=== PATIENT | male | born 1985 | race Caucasian/White ===

== ENCOUNTER 2019-02-06 19:26 | Emergency (ER) | payer BC, MEDICAID ==
[2019-02-06 19:51] LABS: ABS Basophils 0.1 10^3/ul (0-0.2); ABS Lymphocytes 1.5 10^3/ul (1.0-4.8); ABS Monocytes 0.3 10^3/ul (0-0.8); ABS Neutrophils 7.5 10^3/ul (1.5-7.7); Eosinophil % 0.3 %; Hematocrit 46 % (42-52); Lymphocyte % 15.8 %; Mean Corpuscular HGB Conc 35 g/dL (31-36); Mean Corpuscular Hemoglobin 32 pg (27-31); Mean Corpuscular Volume 90 fL (80-94); Mean Platelet Volume 6.6 fL (7.4-10.4); Platelet Count 373 10^3/uL (150-450); Red Blood Count 5.08 10^6 /uL (4.18-5.48); Red Cell Distribution Width 13 % (10-15); White Blood Count 9.3 10^3/uL (3.5-10.8)
[2019-02-06 20:07] LABS: ALT 22 U/L (7-52); AST 26 U/L (13-39); Albumin 4.6 g/dL (3.2-5.2); Albumin/Globulin Ratio 1.8 (1-3); Alkaline Phosphatase 55 U/L (34-104); Anion Gap 13 mmol/L (2-11); Blood Urea Nitrogen 16 mg/dL (6-24); CO2 Carbon Dioxide 27 mmol/L (22-32); Calcium 9.9 mg/dL (8.6-10.3); Chloride 100 mmol/L (101-111); EGFR African American 119.1 (>60); EGFR Non-African American 98.4 (>60); Globulin 2.6 g/dL (2-4); Glucose 102 mg/dL (70-100); Sodium 140 mmol/L (135-145); Total Protein 7.2 g/dL (6.4-8.9)
--- NOTE | 2019-02-06 20:10 | ED ---
Psychiatric Complaint - HPI Summary HPI Summary: The pt is a 33 yr old male presenting to [facility] c/o EtOH abuse and fearfulness beginning 1899 this date. History is primarily from mother initially who accompanied pt to the ED and pt could only state, "I'm so afraid" initially. He was living in [place] with his and has an extensive history of EtOH abuse. He has been to EtOH rehab twice and after the second time he began drinking immediately which was a few weeks ago, which made his ask him to move out and seek help with his parents. He now lives with his parents in [place] and is attending Alcoholics Anonymous daily but still continues to drink. He has been seen in the past for psychiatric reasons but does not know the diagnoses he received. Per the mother, the pt was losing it and unable to read earlier today and could not remember performing simple actions like opening the deck door. He repeatedly states that he is freaking out and so scared and mentions that he drank an unspecified amount of alcohol earlier today. Pt came to the ED today because he felt he could get some help, and to try to stop drinking alcohol. He notes that he hears voices that tell him to drink but denies any SI or HI and denies that the voices are commanding him to hurt himself or someone else. Pt denies any visual hallucinations. He is feeling much worse than he was at the AA meeting this afternoon. He mostly drinks bourbon and notes that he has considered his father an alcoholic since he was a child. The pt sometimes has DTs and withdrawal symptoms after EtOH abuse. He takes trazadone and an unspecified SSRI at home. He denies any medical history, allergies, or surgical history. He denies any pain in triage but reports head and abd pain in the room. Pt denies overdose or any use of substances other than alcohol. He denies prior hx of suicide gesture. No aggravating or alleviating factors noted. FHx of alcoholism. Vital signs while in room: HR 91, BP 128/90, and O2 sat 96%. Pt placed on constant observation. - History Of Current Complaint Chief Complaint: EDMentalHealth Time Seen by Provider: 02/06/19 19:37 Hx Obtained From: Patient, Family/Comic Artist - mother Onset/Duration: Gradual Onset, Still Present Timing: Constant Severity Initially: Moderate Severity Currently: Moderate Character: Fearful, Anxious Aggravating Factor(s): Nothing Alleviating Factor(s): Nothing Associated Signs And Symptoms: Positive: Hallucinating - auditory, but not command hallucinations. No auditory hallucinations Related History: Positive For: Prior Psychiatric Issues, Admissions Related To Substance Abuse Has Suicidal: Denies: Thoughts, Demonstrates Gesture, Has Prior Attempt(s) Has Homicidal: Denies: Thoughts, Demonstrates Gesture, Has Prior Attempt(s) Ingestion History: Type/Name Of Drug - alcohol, Amount Ingested - unknown - Allergies/Home Medications Allergies/Adverse Reactions: Allergies Allergy/AdvReac Type Severity Reaction Status Date / Time No Known Allergies Allergy Verified 02/06/19 19:30 PMH/Surg Hx/FS Hx/Imm Hx Previously Healthy: No - hx EtOH abuse and failed rehab several times Sensory History: Denies: Hx Cataracts EENT History: Denies: Hx Deafness - Surgical History Surgical History: None Infectious Disease History: No Infectious Disease History: Denies: Traveled Outside the [place] in Last 30 Days - Family History Known Family History: Positive: Other - alcoholism, father - Social History Lives: With Family - mother and father now, was living with in [place] until failed alcohol rehab. No children. Alcohol Use: Daily - large amounts Hx Substance Use: No - denies Smoking Status (MU): Never Smoked Tobacco Review of Systems Constitutional: Negative Eyes: Negative ENT: Negative Cardiovascular: Negative Respiratory: Negative Positive: Abdominal Pain. Negative: Vomiting, Diarrhea, Nausea Positive: no symptoms reported Musculoskeletal: Negative Skin: Negative Positive: Headache. Negative: Syncope, Slurred Speech Positive: Anxious, Other - fearful All Other Systems Reviewed And Are Negative: Yes Physical Exam - Summary Physical Exam Summary: Appearance: agitated-appearing, no pain distress noted, thin, pt pacing in room , pt shaking his legs Skin: Warm, color reflects adequate perfusion, dry Head: Normal Head/Face inspection, atraumatic Eyes: Conjunctiva clear, pupils midpoint ENT: Normal inspection Neck: Supple, no nodes, no JVD Respiratory: Lungs clear, normal breath sounds, no respiratory distress Cardio: RRR, No murmur, pulses normal, brisk capillary refill Abdomen: Soft, nontender Bowel sounds: Present Musculoskeletal: Strength Intact/ROM intact, no calf tenderness, no edema. Psychological: Anxious, fearful, reaches out for mother to comfort him Neuro: Alert, muscle tone normal, no focal deficit, not tremulous, not hallucinating per pt Triage Information Reviewed: Yes Vital Signs On Initial Exam: Initial Vitals Temp Pulse Resp BP Pulse Ox 99 F 91 15 128/90 96 02/06/19 19:28 02/06/19 19:28 02/06/19 19:28 02/06/19 19:28 02/06/19 19:28 Vital Signs Reviewed: Yes Diagnostics - Vital Signs Vital Signs Temp Pulse Resp BP Pulse Ox 02/06/19 19:28 99 F 91 15 128/90 96 - Laboratory Lab Results: Lab Results 02/06/19 Range/Units 19:45 WBC 9.3 (3.5-10.8) 10^3/uL RBC 5.08 (4.18-5.48) 10^6 /uL Hgb 16.0 (14.0-18.0) g/dL Hct 46 (42-52) % MCV 90 (80-94) fL MCH 32 H (27-31) pg MCHC 35 (31-36) g/dL RDW 13 (10-15) % Plt Count 373 (150-450) 10^3/uL MPV 6.6 L (7.4-10.4) fL Neut % (Auto) 80.6 % Lymph % (Auto) 15.8 % [place] % (Auto) 2.7 % Eos % (Auto) 0.3 % Baso % (Auto) 0.6 % Absolute Neuts (auto) 7.5 (1.5-7.7) 10^3/ul Absolute Lymphs (auto) 1.5 (1.0-4.8) 10^3/ul Absolute Monos (auto) 0.3 (0-0.8) 10^3/ul Absolute Eos (auto) 0.0 (0-0.6) 10^3/ul Absolute Basos (auto) 0.1 (0-0.2) 10^3/ul Absolute Nucleated RBC 0.0 10^3/ul Nucleated RBC % 0.0 Result Diagrams: 02/06/19 19:45 02/06/19 19:45 Lab Statement: Any lab studies that have been ordered have been reviewed, and results considered in the medical decision making process. Re-Evaluation - Re-Evaluation First Eval Re-Evaluation Time: 20:47 Change: Unchanged Comment: Pt history was further discussed with pt and mother. Second Eval Re-Evaluation Time: 20:50 Change: Unchanged Comment: Ari from [facility] and I go into the room together. Mother advised of E eval process. Pt gives permission for mother to know his lab results. Pt and mother advised of EtOH level of 327. Advised the pt to sleep. Pt wants meds for calm to sleep. Will give Ativan 2 mg PO. Third Eval Re-Evaluation Time: 21:00 Change: Worse Comment: Pt is dry heaving, will give Zofran. Fourth Eval Re-Evaluation Time: 22:00 Change: Improved Comment: Pt appears to be sleeping. Calm on stretcher. Will change observation to q 15 minutes. Mother has gone home. Course/Dx - Course Course Of Treatment: The pt is a 33 yr old male presenting to [facility] c/o acute EtOH abuse (s/p failed rehab several times, hx DT's and alcohol withdrawal, but no hx seizures), and also fearfulness beginning 1899 this date. He also reports head pain, abd pain, fearfulness, and anxiety. He denies wishing any medication for head pain or abdominal pain. Pt came to the ED today with his mother to try to get help with stopping drinking alcohol, and because he is "freaking out". Pt denies SI/HI. On exam pt is alert, pacing in the room, cooperative, clings to mother, has no VS indicating DT's or withdrawal, and no tremor and denies hallucinations. Speech is clear and coherent. Test results without significant abnormality except serum alcohol 327. In the ED course pt was given 2 mg Ativan PO and 8 mg Zofran ODT PO. Final Dxs are alcohol intoxication, chronic alcohol abuse, and mental health problem. The pt will be a sign out to Dr. Grover at the 219902/06/2019 shift change pending alcohol metabolism and clinical sobriety , and observation for medical complications of alcoholism, mental health evaluation and disposition. - Differential Dx/Clinical Impression Provider Diagnosis: Mental health problem, Alcohol intoxication, Chronic alcohol abuse Discharge ED - Sign-Out/Discharge Documenting (check all that apply): Sign-Out Patient Signing out patient TO: Catrachito Grover - The pt will be a sign out to Dr. Grover at the 219902/06/2019 shift change pending MHE evaluation, sobriety, and disposition. Patient Received Moderate/Deep Sedation with Procedure: No - Discharge Plan Referrals: [facility] [Outside] - Attestation Statements Document Initiated by Rachel: Yes Documenting Scribe: Kenneth Brizuela Provider For Whom Rachel is Documenting (Include Credential): Lilibeth Todd MD Scribe Attestation: Kenneth Gibbons, scribed for Lilibeth Todd MD on 02/06/19 at 2216. Scribe Documentation Reviewed: Yes Provider Attestation: The documentation as recorded by the scribeKenneth accurately reflects the service I personally performed and the decisions made by me, Lilibeth Todd MD Status of Scribe Document: Viewed
[2019-02-06 20:30] LABS: Urine Appearance Clear; Urine Bilirubin Negative (Negative); Urine Blood Negative (Negative); Urine Color Straw; Urine Glucose Negative (Negative); Urine Ketones Trace (Negative); Urine Nitrite Negative (Negative); Urine Protein Negative (Negative); Urine Specific Gravity 1.008 (1.010-1.030); Urine Urobilinogen Negative (Negative)
[2019-02-06 20:31] LABS: Acetaminophen < 15 mcg/mL; Alcohol 327 mg/dL (<10); Salicylate < 2.50 mg/dL (<30)
[2019-02-06 20:47] LABS: TSH (Thyroid Stimulating Horm) 1.67 mcIU/mL (0.34-5.60)
[2019-02-06 20:49] LABS: Urine Benzodiazepine Screen None Detected (None Detect); Urine Opiates Screen None Detected (None Detect)
[2019-02-06] MEDS ORDERED: LORazepam TAB(*) 1 MG PO ONE (20:54)
[2019-02-06] MEDS ORDERED: Ondansetron ODT TAB* 4 MG PO ONE (21:01)
--- NOTE | 2019-02-07 05:11 | ED ---
Progress - Progress Note Progress Note: Receiving sign-out from Dr. Todd at shift change 2200, pending sobriety and MHE. Patient was sober and medically clear at 0500. This patient will be signed out at shift change [address] Li pending MHE. Re-Evaluation - Re-Evaluation First Eval Re-Evaluation Time: 20:47 Change: Unchanged Comment: Pt history was further discussed with pt and mother. Second Eval Re-Evaluation Time: 20:50 Change: Unchanged Comment: Ari from E and I go into the room together. Mother advised of MHE eval process. Pt gives permission for mother to know his lab results. Pt and mother advised of EtOH level of 327. Advised the pt to sleep. Pt wants meds for calm to sleep. Will give Ativan 2 mg PO. Third Eval Re-Evaluation Time: 21:00 Change: Worse Comment: Pt is dry heaving, will give Zofran. Fourth Eval Re-Evaluation Time: 22:00 Change: Improved Comment: Pt appears to be sleeping. Calm on stretcher. Will change observation to q 15 minutes. Mother has gone home. Course/Dx - Course Course Of Treatment: Receiving sign-out from Dr. Todd at shift change 2200, pending sobriety and MHE. Patient was sober and medically clear at 0500. This patient will be signed out at shift change [address] Li pending MHE. - Diagnoses Provider Diagnoses: Alcohol intoxication, Alcohol-induced mood disorder Discharge ED - Sign-Out/Discharge Documenting (check all that apply): Sign-Out Patient Signing out patient TO: Catrachito Li - Pending MHE Patient Received Moderate/Deep Sedation with Procedure: No - Discharge Plan Condition: Stable Disposition: HOME Patient Education Materials: Mood Disorders (ED), Alcohol Use Disorder (ED) Referrals: [facility] [Outside] - Billing Disposition and Condition Condition: STABLE Disposition: Home - Attestation Statements Document Initiated by Scribe: Yes Documenting Scribe: Marques Armijo Provider For Whom Scribe is Documenting (Include Credential): Catrachito Grover MD Scribe Attestation: Marques Gibbons, scribed for Catrachito Grover MD on 02/08/19 at 0406. Scribe Documentation Reviewed: Yes Provider Attestation: The documentation as recorded by the scribe, Marques Armijo accurately reflects the service I personally performed and the decisions made by me, Catrachito Grover MD Status of Rachel Document: Viewed
[2019-02-07] MEDS ORDERED: Ondansetron ODT TAB* 4 MG SL ONE (05:26)
--- NOTE | 2019-02-07 07:59 | ED ---
Progress - Progress Note Progress Note: Patient signed out from Dr. Grover upon shift change to Dr. Li at 07:00 on 02/07/19. Patient pending MHE. Course/Dx - Course Course Of Treatment: Dr. Zhao felt that the patient was safe to go home with alcohol-induced mood disorder diagnosis. - Diagnoses Provider Diagnoses: Alcohol intoxication, Alcohol-induced mood disorder Discharge ED - Sign-Out/Discharge Documenting (check all that apply): Patient Departure - Discharge Patient Received Moderate/Deep Sedation with Procedure: No - Discharge Plan Condition: Stable Disposition: HOME Patient Education Materials: Mood Disorders (ED), Alcohol Use Disorder (ED) Referrals: [facility] [Outside] - Billing Disposition and Condition Condition: STABLE Disposition: Home - Attestation Statements Document Initiated by Richardibe: Yes Documenting Scribe: Lili Thomas Provider For Whom Rachel is Documenting (Include Credential): Catrachito Li MD Scribe Attestation: Lili Gibbons scribed for Catrachito Li MD on 02/07/19 at 1610. Scribe Documentation Reviewed: Yes Provider Attestation: The documentation as recorded by the Lili rodgers accurately reflects the service I personally performed and the decisions made by me, Catrachito Li MD Status of Scribe Document: Viewed
[2019-02-07 12:32] VITALS: BP 121/63
== END 2019-02-07 12:30 | disposition home or self-care (01) ==
LOC: ED 19:26
DX: F10.129 Alcohol abuse with intoxication, unspecified (principal); F10.14 Alcohol abuse with alcohol-induced mood disorder; Y90.8 Blood alcohol level of 240 mg/100 ml or more; R44.0 Auditory hallucinations
CPT/HCPCS: 36415; 80053; 80307; 80320; 80329; 81003; 84443; 85025; 99282; A9270-GY; G0480

== ENCOUNTER 2019-04-22 11:39 | Emergency (ER) | payer MEDICAID, OTHER ==
[2019-04-22] MEDS ORDERED: NS 0.9% 1000 ML** 1,000 ML IV ONE ×4 (11:54→15:30)
[2019-04-22] MEDS ORDERED: LORazepam INJ* 2 MG/ML 1 ML VIAL IV PUSH ONE (11:55)
[2019-04-22] MEDS ORDERED: Lorazepam PYXIS KEY PRN (11:55)
[2019-04-22] MEDS ORDERED: Ondansetron INJ* 2 MG/ML VIAL IV ONE ×2 (12:06→14:09)
--- NOTE | 2019-04-22 12:06 | ED ---
Substance Abuse/Use - HPI Summary HPI Summary: This pt is a 33 y/o male presenting to [facility] for alcohol relapse. Pt was on rehab for alcohol abuse at [facility] and recently graduated from there 1 month ago. He notes about 1 week ago pt started drinking alcohol again. Pt reports he has been drinking half of 750 ml every day for the past 1 week and his last drink was at 0600 today. Family friends are in the room and report pt is a friend of their son. They report they saw the pt 1 week ago but pt's parents went on a trip and are out of town. Pt has been staying at his parent's house since then. Family friends state pt's called and was unable to reach the pt. Family friends went up to the house and were not able to get an answer from the pt but were able to see him walking by. Pt's called the patient and threatened to call the stave planer tender if he didn't come out. Per family friends, pt finally came out and agrees to go to the hospital. Per family friends, pt is incredibly anxious. Pt reports he is nauseous. Denies SI or HI. No other PMHx. - History Of Current Complaint Chief Complaint: EDDetoxRequest Stated Complaint: ALCOHOL ABUSE HELP PER PT Time Seen by Provider: 04/22/19 11:49 Hx Obtained From: Patient, Other: - Family friends Onset/Duration of Drug/ETOH Abuse: Days Ingestion History: Type/Name Of Drug - Alcohol Overdose Characteristics: Oral Timing Of Abuse: Daily, Binge Use Severity Currently: Moderate Character: Anxious Aggravating Factor(s): Nothing Alleviating Factor(s): Nothing Associated Signs And Symptoms: Nausea, Intentional Ingestion Related Hx: Drug/Alcohol Last Used @ - alcohol last at 0600 today. - Allergies/Home Medications Allergies/Adverse Reactions: Allergies Allergy/AdvReac Type Severity Reaction Status Date / Time No Known Allergies Allergy Verified 02/06/19 19:30 Home Medications: Home Medications Escitalopram * [Lexapro *] 20 mg PO DAILY 04/22/19 [History Confirmed 04/22/19] Sertraline* [Zoloft*] 50 mg PO DAILY 04/22/19 [History Confirmed 04/22/19] traZODone TAB* [Desyrel TAB*] 50 mg PO BEDTIME 04/22/19 [History Confirmed 04/22] PMH/Surg Hx/FS Hx/Imm Hx Endocrine/Hematology History: Denies: Hx Diabetes Cardiovascular History: Denies: Hx Hypertension Sensory History: Denies: Hx Cataracts, Hx Deafness Opthamlomology History: Denies: Hx Cataracts Psychiatric History: Reports: Hx Substance Abuse - alcohol Denies: Hx Eating Disorder, Hx of Violent Episodes Against Others Infectious Disease History: No Infectious Disease History: Denies: Traveled Outside the [place] in Last 30 Days - Family History Known Family History: Positive: Other - alcoholism, father - Social History Alcohol Use: Daily - large amounts Hx Substance Use: No - denies Substance Use Type: Reports: None Smoking Status (MU): Never Smoked Tobacco Review of Systems Negative: Fever ENT: Negative Cardiovascular: Negative Positive: Nausea Positive: Anxious All Other Systems Reviewed And Are Negative: Yes Physical Exam - Summary Physical Exam Summary: Constitutional: Well-developed, Well-nourished, Alert. (-) Distressed Skin: Warm, Dry HENT: Normocephalic; Atraumatic, No tongue fasciculation Eyes: Conjunctiva normal Neck: Musculoskeletal ROM normal neck. (-) JVD, (-) Stridor, (-) Nuchal rigidity Cardio: Rhythm regular, rate is tachycardic, Heart sounds normal; Intact distal pulses; Radial pulses are 2+ and symmetric. (-) Murmur Pulmonary/Chest wall: Effort normal. (-) Respiratory distress, (-) Wheezes, (-) Rales Abd: Soft, (-) tenderness, (-) Distension, (-) Guarding, (-) Rebound Musculoskeletal: (-) Edema Lymph: (-) Cervical adenopathy Neuro: Alert, Oriented x3. No tremors. Patient is anxious. Psych: Patient is anxious. Triage Information Reviewed: Yes Vital Signs On Initial Exam: Initial Vitals Temp Pulse Resp BP Pulse Ox 98.5 F 146 24 124/95 98 04/22/19 11:41 04/22/19 11:41 04/22/19 11:41 04/22/19 11:41 04/22/19 11:41 Vital Signs Reviewed: Yes Procedures - Sedation Patient Received Moderate/Deep Sedation with Procedure: No Diagnostics - Vital Signs Vital Signs Temp Pulse Resp BP Pulse Ox 04/22/19 11:41 98.5 F 146 24 124/95 98 - Laboratory Result Diagrams: 04/22/19 12:05 04/22/19 12:05 Lab Statement: Any lab studies that have been ordered have been reviewed, and results considered in the medical decision making process. Re-Evaluation - Re-Evaluation First Eval Re-Evaluation Time: 13:11 Comment: jordan worker reports pt has follow up with [facility] next week. Pt is not interested in inpatient treatment. HR in 90's Second Eval Re-Evaluation Time: 14:02 Comment: Pt is requesting something for anxiety. He will be given Atarax. Third Eval Re-Evaluation Time: 15:04 Comment: Will give pt 1 dose of Librium. Fourth Eval Re-Evaluation Time: 15:31 Comment: Discussed Librium taper with family friends who are in agreement in monitoring Librium tapering. Course/Dx - Course Course Of Treatment: 33 y/o male w hx alcohol use disorder who presents for alcohol use. - no e/o withdrawal at this time. Physical exam with a well- appearing anxious male, does not appear intoxicated. Given reports of alcohol use, check an alcohol level. Patient also reporting feeling nauseous, given Zofran and IV fluids. Patient's family friend at bedside. Patient does not want acute inpatient detox, follows [facility]. Will have SW see him likely outpatient rehab. - Diagnoses Provider Diagnoses: Alcohol intoxication, Alcohol abuse Discharge ED - Sign-Out/Discharge Documenting (check all that apply): Patient Departure - Discharge home - Discharge Plan Condition: Stable Disposition: HOME Prescriptions: chlordiazePOXIDE CAP* [Librium CAP*] 25 mg PO Q6HR 4 Days #20 cap MDD 4 Patient Education Materials: Alcohol Intoxication (ED) Referrals: [facility] [Outside] (Appointment: Thursday04/25/19 at 9:00AM) No Primary Care Phys,NOPCP [Primary Care Provider] - Additional Instructions: You were seen in the emergency department for alcohol intoxication. Please don' t drink and drive. Librium taper: Day 1: take 2 tablets (50mg) every 6 hours (4 times per day) Day 2: take 2 tablets (50mg) every 8 hours (3 times per day) Day 3: take 2 tablets (50mg) every 12 hours (2 times per day) Day 4: take 2 tablets (50mg) once It was a pleasure taking care of you today. - Billing Disposition and Condition Condition: STABLE Disposition: Home - Attestation Statements Document Initiated by Rachel: Yes Documenting Scribe: Kelsey Lord Provider For Whom Rachel is Documenting (Include Credential): Shanna Julio MD Scribe Attestation: I, Kelsey Lord, scribed for Shanna Julio MD on 04/22/19 at 1845. Scribe Documentation Reviewed: Yes Provider Attestation: The documentation as recorded by the Kelsey rodgers accurately reflects the service I personally performed and the decisions made by me, Shanna Julio MD Status of Scribe Document: Viewed
[2019-04-22 12:31] LABS: ABS Lymphocytes 1.2 10^3/ul (1.0-4.8); ABS Monocytes 0.6 10^3/ul (0-0.8); ABS Neutrophils 5.4 10^3/ul (1.5-7.7); Eosinophil % 0.2 %; Hematocrit 47 % (42-52); Hemoglobin 16.1 g/dL (14.0-18.0); Lymphocyte % 16.8 %; Mean Corpuscular HGB Conc 34 g/dL (31-36); Mean Corpuscular Hemoglobin 30 pg (27-31); Mean Corpuscular Volume 89 fL (80-94); Mean Platelet Volume 7.2 fL (7.4-10.4); Nucleated Red Blood Cells % 0.2; Platelet Count 255 10^3/uL (150-450); Red Blood Count 5.32 10^6 /uL (4.18-5.48); Red Cell Distribution Width 13 % (10-15); White Blood Count 7.3 10^3/uL (3.5-10.8)
[2019-04-22 12:42] LABS: Albumin 4.6 g/dL (3.2-5.2); Albumin/Globulin Ratio 1.5 (1-3); BUN/Creatinine Ratio 24.7 (8-20); EGFR African American 132.8 (>60); EGFR Non-African American 109.7 (>60); Total Bilirubin 0.8 mg/dL (0.2-1.0); Total Protein 7.6 g/dL (6.4-8.9)
[2019-04-22] MEDS ORDERED: Metoclopramide IV* 5 MG/ML 2 ML VIAL IV SLOW PU ONE (13:11)
[2019-04-22] MEDS ORDERED: hydrOXYzine HCL TAB* 25 MG PO ONE (14:02)
[2019-04-22] MEDS ORDERED: chlordiazePOXIDE CAP* 25 MG PO ONE ×2 (15:03→16:10)
[2019-04-22 16:47] VITALS: BP 108/56
== END 2019-04-22 16:45 | disposition home or self-care (01) ==
LOC: ED 11:39
DX: F10.129 Alcohol abuse with intoxication, unspecified (principal); Z79.899 Other long term (current) drug therapy
CPT/HCPCS: 36415; 80053; 80320; 85025; 96361; 96374; 96375; 96376; 99284; A9270-GY; G0480; J2405; J2765